=== PATIENT | female | born 1960 | race Caucasian/White ===

== ENCOUNTER 2021-04-04 15:47 | Emergency (ER) | payer MEDICARE ==
[~2021-04-04 15:47] MED LIST: NAPROSYN EC 37375 MG PO; NORFLEX 100 MG100 MG PO; OMNICEF 300 MG300 MG PO; PHENERGAN 12.12.5 M1 PO; Voltaren Gel 1 % TOP
[2021-04-04 18:02] LABS: HEMOGLOBIN 7.8 gm/dl (12.3-15.3); RED BLOOD COUNT 2.79 M/UL (4.00-5.10); WHITE BLOOD COUNT 8.4 K/UL (4.5-11.0)
[2021-04-04 18:33] LABS: BUN/CREATININE RATIO 16 (0-10)
[2021-04-04] MEDS ORDERED: FLAGYL500 MG PO (20:56)
[2021-04-04] MEDS ORDERED: AUGMENTIN 875-1 EACH PO (20:56)
[2021-04-04] MEDS ORDERED: ZOFRAN ODT 4 MG4 MG PO (20:56)
[2021-04-16] MEDS ORDERED: PREGABALIN200 MG PO (09:24)
[2021-04-16] MEDS ORDERED: PHYSICIANS1000 MCG/1 INJ (09:25)
== END 2021-04-04 21:58 | disposition home or self-care (01) ==
LOC: ER1 15:47
PROVIDERS: Student in an Organized Health Care Education/Training Program
DX: K58.9 Irritable bowel syndrome, unspecified (principal); N39.0 Urinary tract infection, site not specified; K57.90 Diverticulosis of intestine, part unspecified, without perforation or abscess without bleeding; Z20.822 Contact with and (suspected) exposure to COVID-19; Z91.040 Latex allergy status; Z79.899 Other long term (current) drug therapy
CPT/HCPCS: 0240U; 80053; 81001; 82272; 82550; 82553; 83605; 83690; 83735; 83874; 83880; 84100; 84484; 85025; 85610; 85730; 93005; 96374; 96375; 96376; 99285; J0696; J2270; J2405; Q9967

== ENCOUNTER → 2021-04-16 | Day surgery (SDC) | payer MEDICARE ==
[~2021-04-16] MED LIST changes: +AUGMENTIN 875-1 EACH PO; +FLAGYL500 MG PO; +PHYSICIANS1000 MCG/1 INJ; +PREGABALIN200 MG PO; +ZOFRAN ODT 4 MG4 MG PO
== END | disposition home or self-care (01) ==
LOC: OR 07:30
PROVIDERS: Internal Medicine Gastroenterology
PROC: 0DB98ZX Excision of Duodenum, Via Natural or Artificial Opening Endoscopic, Diagnostic (ICD-10-PCS; principal; 2021-04-16 07:30)
PROC: 0DJD8ZZ Inspection of Lower Intestinal Tract, Via Natural or Artificial Opening Endoscopic (ICD-10-PCS; 2021-04-16 07:30)
DX: K21.00 Gastro-esophageal reflux disease with esophagitis, without bleeding (principal); K25.9 Gastric ulcer, unspecified as acute or chronic, without hemorrhage or perforation; K44.9 Diaphragmatic hernia without obstruction or gangrene; K57.30 Diverticulosis of large intestine without perforation or abscess without bleeding; K64.0 First degree hemorrhoids; K64.4 Residual hemorrhoidal skin tags; K22.8 Other specified diseases of esophagus; D62 Acute posthemorrhagic anemia; D50.9 Iron deficiency anemia, unspecified; D69.3 Immune thrombocytopenic purpura; G89.29 Other chronic pain; M54.9 Dorsalgia, unspecified; E66.9 Obesity, unspecified; Z68.32 Body mass index [BMI] 32.0-32.9, adult; Z79.2 Long term (current) use of antibiotics; Z79.899 Other long term (current) drug therapy; Z20.822 Contact with and (suspected) exposure to COVID-19; Z86.711 Personal history of pulmonary embolism; Z79.01 Long term (current) use of anticoagulants; Z88.5 Allergy status to narcotic agent; Z88.6 Allergy status to analgesic agent; Z88.8 Allergy status to other drugs, medicaments and biological substances; Z91.040 Latex allergy status
CPT/HCPCS: J1642; J2405; J2704; J7040

== ENCOUNTER → 2021-09-12 | Outpatient (CLI) | payer MEDICARE | LOC: RAD 06-12 08:35 | DX: K44.9 Diaphragmatic hernia without obstruction or gangrene (principal) | CPT/HCPCS: 74221 ==

== ENCOUNTER 2022-01-04 10:27 | Observation (INO) | payer MEDICARE ==
[~2022-01-04] VITALS: Ht 160 cm; Wt 81.2 kg
[~2022-01-04 10:27] MED LIST changes: +PHYSICIANS1000 MCG/1 IM; -PHYSICIANS1000 MCG/1 INJ
[2022-01-04 11:10] LABS: HEMOGLOBIN 10.2 gm/dl (12.3-15.3); RED BLOOD COUNT 3.81 M/UL (4.00-5.10); WHITE BLOOD COUNT 6.1 K/UL (4.5-11.0)
[2022-01-04 11:57] LABS: BUN/CREATININE RATIO 22 (0-10)
[2022-01-04] MEDS ORDERED: VOLTAREN ARTHRI20 GM TOP (16:51)
[2022-01-05 02:28] LABS: HEMOGLOBIN 10.1 gm/dl (12.3-15.3); RED BLOOD COUNT 3.84 M/UL (4.00-5.10); WHITE BLOOD COUNT 5.4 K/UL (4.5-11.0)
[2022-01-05 02:47] LABS: BUN/CREATININE RATIO 24 (0-10)
[2022-01-05] MEDS ORDERED: AMLODIPINE BESYL5 MG PO (13:19)
[2022-01-05] MEDS ORDERED: TYLOPHEN500 MG PO (13:19)
--- NOTE | 2022-01-05 15:27 | NUR ---
EVENT MONITOR IN PLACE PER MD ORDER. APPLIED PER RESPIRATORY THERAPIST.
== END 2022-01-05 16:53 | disposition home or self-care (01) ==
LOC: ER1 10:27 → CDU 16:24 → MED SURG 4 17:26
PROVIDERS: Physician Assistant; ADMIT Internal Medicine
DX: R55 Syncope and collapse (principal); R01.1 Cardiac murmur, unspecified; I10 Essential (primary) hypertension; M25.422 Effusion, left elbow; M25.421 Effusion, right elbow; M79.7 Fibromyalgia; M19.021 Primary osteoarthritis, right elbow; Z88.5 Allergy status to narcotic agent; Z88.8 Allergy status to other drugs, medicaments and biological substances; Z91.040 Latex allergy status; Z79.899 Other long term (current) drug therapy
CPT/HCPCS: ECHO; 36415; 70496; 70498; 71045; 73030; 73080; 73090; 73130; 80048; 80053; 82550; 82553; 83036; 83540; 83550; 83605; 83735; 83880; 84100; 84484; 85025; 85027; 85652; 86140; 87040; 93005; 93306; 96374; 96376; 99285; G0378; J1650; J2270; J2405; Q9967